=== PATIENT | female | born 1965 | race Caucasian/White ===

== ENCOUNTER → 2017-02-06 | Outpatient (CLI) | payer OTHER ==
[~2017-02-06] MED LIST: ASPI81TA28 PO; CLON1TAB3 PO; DICL-201 PO; LEVO50TA6 PO; ONDA4TAB10 SL; PANT40TA PO; PRAM1TAB52 PO; ROPI0.5T15 PO; SIMV80TA2 PO; SUMA50TA15 PO; VALA1TAB31 PO
== END | disposition home or self-care (01) ==
LOC: C.LAB 11:03
PROVIDERS: ATTEND Family Medicine
DX: E03.4 Atrophy of thyroid (acquired) (principal)

== ENCOUNTER → 2017-02-25 | Outpatient (CLI) | payer OTHER ==
--- NOTE | 2017-02-25 09:35 | DIAGNOSTIC IMAGING REPORT ---
CERVICAL SPINE MRI HISTORY: Right shoulder pain. RADICULOPATHY TECHNIQUE: Multiplanar multisequence MRI of the cervical spine was performed without the use of contrast. COMPARISON STUDY: None. FINDINGS: Slight reversal of the normal lordotic curvature. Alignment is intact. Levoscoliosis of the thoracic spine. No fractures within the cervical spine. Prevertebral soft tissues and the C1-C2 interval are within normal limits. Cervical spinal cord demonstrates a normal signal intensity. Mild disc space narrowing at C3-C4. Moderate to space narrowing at C4-C5. Severe disc space narrowing at C5-C6. There are small endplate osteophytes at these levels. Mild to moderate facet degenerative changes within the cervical spine. C2-C3: No significant central canal or neural foraminal narrowing. C3-C4: Small broad-based posterior disc osteophyte complex without significant central canal or neural foraminal narrowing. C4-C5: Broad-based posterior disc osteophyte complex resulting in partial effacement of the anterior thecal sac without cord deformity. There is severe left and mild right neural foraminal narrowing. C5-C6: Broad-based posterior disc osteophyte complex which abuts but does not deform the anterior cord. There is mild right and severe left neural foraminal narrowing due to the uncovertebral and facet hypertrophy. C6-C7: Small broad-based posterior disc osteophyte complex without significant central canal or neural foraminal narrowing. C7-T1: No significant central canal or neural foraminal narrowing. IMPRESSION: 1. Mild reversal of the normal lordotic curvature. 2. Degenerative disc disease within the mid to lower cervical spine as described above. This is most pronounced at the C5-C6 level. 3. Bilateral neural foraminal narrowing as described above. Electronically signed by: Michelet Humphries M.D. 02/25/2017 9:33 AM Dictated Date/Time: 02/25/2017 9:12 AM
== END | disposition home or self-care (01) ==
LOC: C.MRI 07:15
PROVIDERS: ATTEND Physician Assistant
DX: M54.12 Radiculopathy, cervical region (principal); M50.321 Other cervical disc degeneration at C4-C5 level; M50.322 Other cervical disc degeneration at C5-C6 level; M48.02 Spinal stenosis, cervical region

== ENCOUNTER 2017-04-07 11:35 | Emergency (ER) | payer OTHER ==
[~2017-04-07] VITALS: Ht 157.5 cm; Wt 60.6 kg
[~2017-04-07 11:35] MED LIST changes: -CLON1TAB3 PO; -DICL-201 PO; -LEVO50TA6 PO; -ONDA4TAB10 SL; -PANT40TA PO; -PRAM1TAB52 PO; -SUMA50TA15 PO; -VALA1TAB31 PO
[2017-04-07 11:38] VITALS: TEMP 36.8; Ht 157.5 cm; Wt 60.6 kg
[2017-04-07] MEDS ORDERED: OPTIRAY 320 IV PRN (12:30)
[2017-04-07] MEDS ORDERED: SUMA50TA15 PO (12:33)
[2017-04-07] MEDS ORDERED: LEVO50TA6 PO (12:33)
[2017-04-07] MEDS ORDERED: DICL-201 PO (12:33)
[2017-04-07] MEDS ORDERED: PRAM1TAB52 PO (12:33)
[2017-04-07] MEDS ORDERED: PANT40TA PO (12:33)
[2017-04-07] MEDS ORDERED: VALA1TAB31 PO (12:33)
[2017-04-07] MEDS ORDERED: CLON1TAB3 PO (12:33)
[2017-04-07 12:54] LABS: BASO % 0.1 %; BASO ABS # 0.01 K/uL (0-0.2); COMPLETE YES; EOS % 0.3 %; IG% 0.3 %; LYMPH % 17.6 %; LYMPH ABS # 1.18 K/uL (1.2-3.4); MEAN CELL VOLUME 90.3 fL (80-100); MEAN CORPUSCULAR HEMOGLOBIN 30.9 pg (25-34); MEAN CORPUSCULAR HGB CONC 34.2 g/dl (32-36); MEAN PLATELET VOLUME 9.9 fL (7.4-10.4); MONO % 13.7 %; PLATELET COUNT 234 K/uL (130-400); RED BLOOD COUNT 4.21 M/uL (4.2-5.4); WHITE BLOOD COUNT 6.72 K/uL (4.8-10.8)
--- NOTE | 2017-04-07 13:09 | DIAGNOSTIC IMAGING REPORT ---
ABDOMEN AND PELVIS CT WITH IV CONTRAST CT DOSE: 273.98 mGy.cm HISTORY: Pain. 5. Change. lower abdominal pain, diarrhea TECHNIQUE: Multiaxial CT images of the abdomen and pelvis were performed following the use of intravenous contrast. COMPARISON STUDY: None. FINDINGS: Lung bases are clear. Liver spleen and pancreas are unremarkable. Slight wall thickening of the colon with slight hyperemia of the colonic wall. Mild nonspecific generalized colitis with considered. There is no evidence for abscess collection or obstructive change.. The pelvic organs are unremarkable. No suspicious lytic or blastic osseous lesions. IMPRESSION: Mild nonspecific colitis. No evidence for abscess collection or obstruction. Study is otherwise negative. Electronically signed by: Jacky Padilla M.D. 04/07/2017 1:08 PM Dictated Date/Time: 04/07/2017 1:04 PM
[2017-04-07 13:13] LABS: BUN/CREATININE RATIO 16.8 (10-20); CALCIUM 8.6 mg/dl (8.5-10.1); CREATININE 0.64 mg/dl (0.60-1.20); POTASSIUM 3.3 mmol/L (3.5-5.1)
[2017-04-07 13:16] LABS: ALB/GLOB RATIO 0.9 (0.9-2)
--- NOTE | 2017-04-07 13:18 | EMERGENCY ROOM VISIT NOTE ---
ED Visit Note First contact with patient: 11:59 I have seen and examined this patient with Kelsey Rizo and generally agree with the treatment plan as discussed. Current/Historical Medications Scheduled Aspirin (Aspirin Ec), 81 MG PO DAILY Clonazepam (Klonopin), 1 MG PO DAILY Diclofenac (Voltaren), 75 MG PO BID Levothyroxine Sodium (Levothyroxine Sodium), 1 TAB PO DAILY Pantoprazole (Protonix), 40 MG PO DAILY Pramipexole Dihydrochloride (Mirapex), 1 TAB PO HS Scheduled PRN Sumatriptan Succinate (Imitrex), 50 MG PO PRN PRN for Migraine Valacyclovir Hcl (Valtrex), 1 GM PO PRN PRN for COLDSORES Allergies Coded Allergies: Amoxicillin (Unverified Allergy, Unknown, UNKNOWN, 08/28/14) Carbamazepine (Unverified Allergy, Unknown, UNKNOWN, 08/28/14) Clavulanic Acid (Unverified Allergy, Unknown, UNKNOWN, 08/28/14) Dust (Unverified Allergy, Unknown, HIVES, 08/22/14) Oxycodone (Unverified Allergy, Unknown, UNKNOWN, 08/22/14) POLLEN (Unverified Allergy, Unknown, HIVES, 08/22/14) Vital Signs Date Time Temp Pulse Resp B/P Pulse Ox O2 Delivery O2 Flow Rate FiO2 04/07/17 11:38 36.8 91 18 122/70 96 Room Air Laboratory Results 04/07/17 12:43 Red Blood Count 4.21, Mean Corpuscular Volume 90.3, Mean Corpuscular Hemoglobin 30.9, Mean Corpuscular Hemoglobin Concent 34.2, Mean Platelet Volume 9.9, Neutrophils (%) (Auto) 68.0, Lymphocytes (%) (Auto) 17.6, Monocytes (%) (Auto) 13.7, Eosinophils (%) (Auto) 0.3, Basophils (%) (Auto) 0.1, Neutrophils # (Auto ) 4.57, Lymphocytes # (Auto) 1.18, Monocytes # (Auto) 0.92, Eosinophils # (Auto ) 0.02, Basophils # (Auto) 0.01 04/07/17 12:43 Test 04/07/17 12:43 White Blood Count 6.72 K/uL (4.8-10.8) Red Blood Count 4.21 M/uL (4.2-5.4) Hemoglobin 13.0 g/dL (12.0-16.0) Hematocrit 38.0 % (37-47) Mean Corpuscular Volume 90.3 fL (80-100) Mean Corpuscular Hemoglobin 30.9 pg (25-34) Mean Corpuscular Hemoglobin Concent 34.2 g/dl (32-36) Platelet Count 234 K/uL (130-400) Mean Platelet Volume 9.9 fL (7.4-10.4) Neutrophils (%) (Auto) 68.0 % Lymphocytes (%) (Auto) 17.6 % Monocytes (%) (Auto) 13.7 % Eosinophils (%) (Auto) 0.3 % Basophils (%) (Auto) 0.1 % Neutrophils # (Auto) 4.57 K/uL (1.4-6.5) Lymphocytes # (Auto) 1.18 K/uL (1.2-3.4) Monocytes # (Auto) 0.92 K/uL (0.11-0.59) Eosinophils # (Auto) 0.02 K/uL (0-0.5) Basophils # (Auto) 0.01 K/uL (0-0.2) RDW Standard Deviation 47.8 fL (36.4-46.3) RDW Coefficient of Variation 14.3 % (11.5-14.5) Immature Granulocyte % (Auto) 0.3 % Immature Granulocyte # (Auto) 0.02 K/uL (0.00-0.02) Anion Gap 7.0 mmol/L (3-11) Est Creatinine Clear Calc Drug Dose 87.2 ml/min Estimated GFR () 118.1 Estimated GFR (Non- 101.9 BUN/Creatinine Ratio 16.8 (10-20) Calcium Level 8.6 mg/dl (8.5-10.1) Total Bilirubin 0.4 mg/dl (0.2-1) Aspartate Amino Transf (AST/SGOT) 20 U/L (15-37) Alanine Aminotransferase (ALT/SGPT) 33 U/L (12-78) Alkaline Phosphatase 96 U/L (45-117) Total Protein 7.2 gm/dl (6.4-8.2) Albumin 3.4 gm/dl (3.4-5.0) Globulin 3.8 gm/dl (2.5-4.0) Albumin/Globulin Ratio 0.9 (0.9-2) Lipase 45 U/L (73-393) Departure Information Referrals Rachel Franco M.D. (PCP) Patient Instructions My [facility]
[2017-04-07] MEDS ORDERED: ONDANSETRON INJ 2 MG/ML 2 ML VIAL IV STA (13:53)
[2017-04-07] MEDS ORDERED: SODIUM CHLORIDE 0.9% 1000ML 1,000 ML IV STA (13:53)
[2017-04-07] MEDS ORDERED: ONDA4TAB10 SL (14:30)
--- NOTE | 2017-04-07 14:32 | EMERGENCY ROOM VISIT NOTE ---
History First contact with patient: 11:59 Chief Complaint: ABDOMINAL PAIN Stated Complaint: FEVER, DIARRHEA, NAUSEA, ABD. PAIN Nursing Triage Summary: Abdmoninal pain described as a fullness, worse when walking. Heating pad yesterday, seemed to help some. Has not gotten much better, PCP sent her here for eval. Associated nausea without vomiting, chills, fever, and headache. Has been taking Motrin, Tyelenol, and Advil. History of Present Illness The patient is a 52 year old female who presents to the Emergency Room with complaints of diarrhea and abdominal pain for the last several days. The patient states that 3 days ago, she developed diarrhea and has had 8-10 episodes of diarrhea daily since then. She has had fevers up to 102.5F. She has been nauseous but has not vomited. She reports some discomfort in her lower abdomen which she describes as a fullness and rates a 5/10. She has been taking ibuprofen and Tylenol for her symptoms. She states that she feels weak. She has been eating toast and scrambled eggs. She states that her appetite is decreased. She denies any recent illnesses or antibiotic use. She denies any recent foreign travel. She denies any uncooked food sources but states that she was camping recently and brushed teeth with sulfur water. She denies blood in her stools. She reports 2 previous C-sections but denies any other abdominal surgeries. Review of Systems A complete 10 point review of systems was reviewed with the patient with pertinent positives and negatives as per history of present illness. All else were negative. Social History Smoking Status: Former Smoker Current/Historical Medications Scheduled Aspirin (Aspirin Ec), 81 MG PO DAILY Clonazepam (Klonopin), 1 MG PO DAILY Diclofenac (Voltaren), 75 MG PO BID Levothyroxine Sodium (Levothyroxine Sodium), 1 TAB PO DAILY Ondasetron Odt (Zofran Odt), 4 MG SL Q6H Pantoprazole (Protonix), 40 MG PO DAILY Pramipexole Dihydrochloride (Mirapex), 1 TAB PO HS Scheduled PRN Sumatriptan Succinate (Imitrex), 50 MG PO PRN PRN for Migraine Valacyclovir Hcl (Valtrex), 1 GM PO PRN PRN for COLDSORES Allergies Coded Allergies: Amoxicillin (Unverified Allergy, Unknown, UNKNOWN, 08/28/14) Carbamazepine (Unverified Allergy, Unknown, UNKNOWN, 08/28/14) Clavulanic Acid (Unverified Allergy, Unknown, UNKNOWN, 08/28/14) Dust (Unverified Allergy, Unknown, HIVES, 08/22/14) Oxycodone (Unverified Allergy, Unknown, UNKNOWN, 08/22/14) POLLEN (Unverified Allergy, Unknown, HIVES, 08/22/14) Physical Exam Vital Signs Date Time Temp Pulse Resp B/P Pulse Ox O2 Delivery O2 Flow Rate FiO2 04/07/17 15:04 78 16 95/58 100 Room Air 04/07/17 13:34 78 93/55 99 Room Air 04/07/17 11:38 36.8 91 18 122/70 96 Room Air Physical Exam VITALS: Vitals are noted on the nurse's note and reviewed by myself. Vital signs stable. GENERAL: This is a 52-year-old female, in no acute distress, nondiaphoretic, well-developed well-nourished. SKIN: The skin was without rashes. EARS: External auditory canals clear, tympanic membranes pearly pineda without erythema or effusion bilaterally. EYES: Pupils equal round and reactive to light and accommodation. Conjunctivae without injection, sclerae without icterus. MOUTH: Mucous membranes moist. Tonsils are not enlarged. Pharynx without erythema or exudate. NECK: Supple without nuchal rigidity. No lymphadenopathy. HEART: Regular rate and rhythm without murmurs gallops or rubs. LUNGS: Clear to auscultation bilaterally without wheezes, rales or rhonchi. ABDOMEN: Positive bowel sounds x 4. Soft, mild tenderness to palpation over the lower abdomen. NEURO: Patient was alert and oriented to person place and time. Medical Decision & Procedures ER Provider Diagnostic Interpretation: ABDOMEN AND PELVIS CT WITH IV CONTRAST FINDINGS: Lung bases are clear. Liver spleen and pancreas are unremarkable. Slight wall thickening of the colon with slight hyperemia of the colonic wall. Mild nonspecific generalized colitis with considered. There is no evidence for abscess collection or obstructive change.. The pelvic organs are unremarkable. No suspicious lytic or blastic osseous lesions. IMPRESSION: Mild nonspecific colitis. No evidence for abscess collection or obstruction. Study is otherwise negative. Laboratory Results 04/07/17 12:43 Red Blood Count 4.21, Mean Corpuscular Volume 90.3, Mean Corpuscular Hemoglobin 30.9, Mean Corpuscular Hemoglobin Concent 34.2, Mean Platelet Volume 9.9, Neutrophils (%) (Auto) 68.0, Lymphocytes (%) (Auto) 17.6, Monocytes (%) (Auto) 13.7, Eosinophils (%) (Auto) 0.3, Basophils (%) (Auto) 0.1, Neutrophils # (Auto ) 4.57, Lymphocytes # (Auto) 1.18, Monocytes # (Auto) 0.92, Eosinophils # (Auto ) 0.02, Basophils # (Auto) 0.01 04/07/17 12:43 Test 04/07/17 12:43 White Blood Count 6.72 K/uL (4.8-10.8) Red Blood Count 4.21 M/uL (4.2-5.4) Hemoglobin 13.0 g/dL (12.0-16.0) Hematocrit 38.0 % (37-47) Mean Corpuscular Volume 90.3 fL (80-100) Mean Corpuscular Hemoglobin 30.9 pg (25-34) Mean Corpuscular Hemoglobin Concent 34.2 g/dl (32-36) Platelet Count 234 K/uL (130-400) Mean Platelet Volume 9.9 fL (7.4-10.4) Neutrophils (%) (Auto) 68.0 % Lymphocytes (%) (Auto) 17.6 % Monocytes (%) (Auto) 13.7 % Eosinophils (%) (Auto) 0.3 % Basophils (%) (Auto) 0.1 % Neutrophils # (Auto) 4.57 K/uL (1.4-6.5) Lymphocytes # (Auto) 1.18 K/uL (1.2-3.4) Monocytes # (Auto) 0.92 K/uL (0.11-0.59) Eosinophils # (Auto) 0.02 K/uL (0-0.5) Basophils # (Auto) 0.01 K/uL (0-0.2) RDW Standard Deviation 47.8 fL (36.4-46.3) RDW Coefficient of Variation 14.3 % (11.5-14.5) Immature Granulocyte % (Auto) 0.3 % Immature Granulocyte # (Auto) 0.02 K/uL (0.00-0.02) Anion Gap 7.0 mmol/L (3-11) Est Creatinine Clear Calc Drug Dose 87.2 ml/min Estimated GFR () 118.1 Estimated GFR (Non- 101.9 BUN/Creatinine Ratio 16.8 (10-20) Calcium Level 8.6 mg/dl (8.5-10.1) Total Bilirubin 0.4 mg/dl (0.2-1) Aspartate Amino Transf (AST/SGOT) 20 U/L (15-37) Alanine Aminotransferase (ALT/SGPT) 33 U/L (12-78) Alkaline Phosphatase 96 U/L (45-117) Total Protein 7.2 gm/dl (6.4-8.2) Albumin 3.4 gm/dl (3.4-5.0) Globulin 3.8 gm/dl (2.5-4.0) Albumin/Globulin Ratio 0.9 (0.9-2) Lipase 45 U/L (73-393) Date/Time Source Procedure Growth Status 04/07/17 12:30 Stool C.difficile Toxin B Gene (PCR) - Final No C. difficile toxin B gene detected Complete Medications Administered Medications (Trade) Dose Ordered Sig/Catrachita Route Start Time Stop Time Status Last Admin Dose Admin Sodium Chloride (Nss 1000ml) 1,000 ml @ 999 mls/hr Q1H1M STAT IV 04/07/17 13:53 04/07/17 14:53 DC 04/07/17 14:15 999 MLS/HR Ondansetron HCl (Zofran Inj) 4 mg NOW STAT IV 04/07/17 13:53 04/07/17 13:54 DC 04/07/17 14:16 4 MG ED Course The patient was evaluated as above. Labs were drawn and IV access was obtained. Patient was medicated with 1 L NSS and [address] scan was performed and read by radiology as above. Patient was reevaluated and findings were discussed. The patient is anxious to get home and requesting discharge. Discharge instructions were reviewed with the patient. The patient verbalized understanding of my assessment and treatment plan and was discharged home in good condition. Medical Decision Differential diagnosis includes diverticulitis, colitis, gastroenteritis, C. difficile, infectious diarrhea, inflammatory bowel disease, among others. The patient is a 52-year-old female who presents today complaining of lower abdominal pain and diarrhea. Labs revealed no leukocytosis, anemia or concerning electrolyte abnormalities. Kidney and liver functions within normal limits. Lipase is not elevated. CT was obtained due to abdominal tenderness. This was read by radiology with a mild colitis. Stool sample was obtained. C. difficile testing was negative. Cultures are pending. The patient felt better after IV hydration and Zofran. Blood pressure was slightly low but the patient states that this is baseline for her. Review of her records does show that she has been mildly hypotensive at baseline in the past. She is not lightheaded. She was instructed to follow-up with her primary care provider within 2 days pending the results of her stool cultures. She was given a prescription for Zofran and instructed to push fluids. She will return here for worsening of her current condition. The patient was independently evaluated by Dr. Paredes, ED attending physician , who agreed with my assessment and treatment plan. Based on the patient's presentation and work up, I feel the patient is stable for outpatient treatment. The patient was educated to return to the emergency department for any worsening of their current condition or new/concerning symptoms. She will follow up with her primary care provider. Impression Primary Impression: Colitis Departure Information Dispostion Home / Self-Care Condition GOOD Prescriptions Ondasetron Odt (ZOFRAN ODT) 4 Mg Tab 4 MG SL Q6H for Nausea, #15 TAB Prov: Kelsey Rizo .KARLIE 04/07/17 Referrals Rachel Franco M.D. (PCP) Patient Instructions [facility] Additional Instructions You have been prescribed Zofran to be used for any nausea or vomiting. Take as prescribed. Rest and drink plenty of fluids, especially electrolyte containing fluids. Follow-up with your primary Care within 48 hours. Your stool cultures are pending. You'll be contacted if these become positive. Return to the emergency department with inability to drink fluids, worsening fevers or any other new/concerning symptoms.
[2017-04-07 15:04] VITALS: BP 95/58; PULSE 78; O2SAT 100
[2017-04-07 15:43] LABS: URINE APPEARANCE CLEAR (CLEAR); URINE BILIRUBIN NEG (NEG); URINE COLOR DK YELLOW; URINE EPITHELIAL CELL AUTO 20-30 /lpf (0-5); URINE NITRITE NEG (NEG); URINE SPECIFIC GRAVITY > 1.045 (1.000-1.030); UROBILINOGEN NEG (NEG); ZZUR CULT IF INDIC CLEAN CATCH YES
[2017-04-07 16:03] LABS: MANUAL MICROSCOPIC REQUIRED? NO; REVIEW REQ? YES
--- NOTE | 2017-04-09 15:52 | Pharmacy Progress Note ---
ED Pharmacist Culture FollowUp Date of Service: April 09, 2017. Called patient regarding stool culture with campylobacter. Patient reports modest improvement in her symptoms since her visit here. Denied bloody stool and high fever. Today is day 5 or 6 of symptoms. Campylobacter is likely self- limiting and will resolve without antibiotics. Patient comfortable continuing without antibiotics at this time. If patient's symptoms do not improve over the next day or two, patient to call ED and request prescription for antibiotic. I provided the ER phone number. Prescription would be for the following: Azithromycin 500 mg po daily x3 days, 0 refill, CRESCENCIO Rizo PA-C. I also confirmed with Kelsey that the Lactobacillus and Gardnerella growing from the urine does not require intervention.
== END 2017-04-07 15:30 | disposition home or self-care (01) ==
LOC: C.EDB 11:36
DX: K52.9 Noninfective gastroenteritis and colitis, unspecified (principal); Z87.891 Personal history of nicotine dependence; Z98.891 History of uterine scar from previous surgery; Z79.82 Long term (current) use of aspirin

== ENCOUNTER → 2017-09-24 | Outpatient (CLI) | payer OTHER ==
[~2017-09-24] MED LIST changes: +CLON1TAB3 PO; +DICL-201 PO; +LEVO50TA6 PO; +ONDA4TAB10 SL; +PANT40TA PO; +PRAM1TAB52 PO; -ROPI0.5T15 PO; -SIMV80TA2 PO; +SUMA50TA15 PO; +VALA1TAB31 PO
--- NOTE | 2017-09-25 07:53 | MAMMOGRAPHY REPORT ---
BILATERAL DIGITAL SCREENING MAMMOGRAM TOMOSYNTHESIS WITH CAD: 09/24/2017 CLINICAL HISTORY: Routine screening. Patient has no complaints. TECHNIQUE: Breast tomosynthesis in addition to standard 2D mammography was performed. Current study was also evaluated with a Computer Aided Detection (CAD) system. COMPARISON: Comparison is made to exams dated: 09/01/2016 mammogram, 07/16/2015 mammogram, 07/26/2013 mammogram - [facility], 07/13/2008, and 12/17/2006. BREAST COMPOSITION: The tissue of both breasts is heterogeneously dense, which may obscure small mas ses. FINDINGS: No suspicious masses, calcifications, or areas of architectural distortion are noted in ei ther breast. There has been no significant interval change compared to prior exams. Scattered bilater al benign-appearing calcifications are not significantly changed. IMPRESSION: ACR BI-RADS CATEGORY 2: BENIGN There is no mammographic evidence of malignancy. A 1 year screening mammogram is recommended. The pa tient will receive written notification of the results. Approximately 10% of breast cancers are not detected with mammography. A negative mammographic report should not delay biopsy if a clinically suggestive mass is present. Xin Segundo M.D. ah/:09/24/2017 15:11:09 Animal Taxonomist: Sherrie PINO(Jessa)(Re[place]), [facility] letter sent: Normal 1/2 BI-RADS Code: ACR BI-RADS Category 2: Benign
== END | disposition home or self-care (01) ==
LOC: C.MAMM 12:13
PROVIDERS: ATTEND Family Medicine
DX: Z12.31 Encounter for screening mammogram for malignant neoplasm of breast (principal)

== ENCOUNTER → 2017-12-28 | Outpatient (CLI) | payer OTHER ==
[~2017-12-28] MED LIST changes: -ONDA4TAB10 SL
[2017-12-31 20:17] LABS: ANA SCREEN TC 249X POSITIVE (NEGATIVE)
== END | disposition home or self-care (01) ==
LOC: C.LAB 18:36
PROVIDERS: ATTEND Physician Assistant Surgical
DX: M79.671 Pain in right foot (principal); M79.672 Pain in left foot

== ENCOUNTER → 2018-01-27 | Outpatient (CLI) | payer OTHER ==
[2018-01-27 16:34] LABS: ALBUMIN 3.9 gm/dl (3.4-5.0); ALKALINE PHOSPHATASE 78 U/L (45-117); ALT/SGPT 22 U/L (12-78); AST/SGOT 16 U/L (15-37); TOTAL PROTEIN 7.4 gm/dl (6.4-8.2)
== END | disposition home or self-care (01) ==
LOC: C.LAB 14:55
PROVIDERS: ATTEND Family Medicine
DX: E03.4 Atrophy of thyroid (acquired) (principal); Z79.899 Other long term (current) drug therapy

== ENCOUNTER → 2018-06-10 | Outpatient (CLI) | payer OTHER ==
[~2018-06-10] MED LIST changes: -CLON1TAB3 PO; +CLON1TAB5 PO
== END | disposition home or self-care (01) ==
LOC: C.LAB 10:16
PROVIDERS: ATTEND Family Medicine
DX: K52.9 Noninfective gastroenteritis and colitis, unspecified (principal)